=== PATIENT | female | born 1945 | race Two or more races ===

== ENCOUNTER 2024-11-02 07:10 | Day surgery (SDC) | payer MEDICARE, MEDICAID, SELFPAY ==
--- NOTE | 2024-10-30 06:00 | EKG_ITS ---
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
[2024-10-30 12:26] LABS: Alanine Aminotransferase 9 U/L (10-49); Albumin, Serum 4.4 gm/dL (3.4-4.8); Albumin/Globulin Ratio 2.0 (1.2-2.2); Alkaline Phosphatase 124 U/L (46-116); Anion Gap 10 (7-16); Aspartate Amino Transferase 13 U/L (0-34); BUN/Creatinine Ratio 17 Ratio (12-20); Bilirubin,Total 0.5 mg/dL (0.3-1.2); Blood Urea Nitrogen 15 mg/dL (9-23); Calcium 9.4 mg/dL (8.3-10.6); Calcium (Corrected) 9.4 mg/dL (8.5-10.1); Carbon Dioxide 30.2 mMol/L (20.0-31.0); Chloride 103 mMol/L (98-107); Creatinine (Component) 0.9 mg/dL (0.6-1.3); Globulin 2.2 gm/dL (2.3-3.5); Glucose 145 mg/dL (74-106); INR 0.9 (0.9-1.3); Osmolality,Calculated 288 (275-295); Partial Thromboplastin Time 23.6 Seconds (22.0-36.0); Potassium 4.0 mMol/L (3.4-5.1); Prothrombin Time 10.4 Seconds (9.0-12.2); Sodium 143 mMol/L (136-145); Total Protein 6.6 gm/dL (5.7-8.2); eGFR > 60 See Note
[2024-10-30 14:10] VITALS: BMI 31.6
[2024-11-02] VITALS (7 sets, daily range): BP systolic 93–150; BP diastolic 48–87; PULSE 50–60; RESP 15–24; TEMP 36.7–37.1; O2SAT 96–100; BMI 30.7
[2024-11-02] MEDS: RINGERS LACTATED 1000 ML 1,000 ML 20 ML IV (09:05)
== END 2024-11-02 10:07 | disposition home or self-care (01) ==
PROVIDERS: Anesthesiology; PCP Physician Assistant; Referring Provider Specialist; Visit Provider Specialist
PROC: 0DBE8ZX Excision of Large Intestine, Via Natural or Artificial Opening Endoscopic, Diagnostic (ICD-10-PCS; CPT 45380; principal; 2024-11-02 08:30)
DX: K57.30 Diverticulosis of large intestine without perforation or abscess without bleeding (principal); K64.9 Unspecified hemorrhoids; Z01.810 Encounter for preprocedural cardiovascular examination; K59.00 Constipation, unspecified; I10 Essential (primary) hypertension; E11.9 Type 2 diabetes mellitus without complications; G89.4 Chronic pain syndrome
CPT/HCPCS: 45378; 36415; 80053; 85610; 85730; 93005; J7120